=== PATIENT | female | born 1985 | race Caucasian/White ===

== ENCOUNTER 2023-04-26 06:09 | Emergency (ER) | payer BC, SELFPAY ==
[2023-04-26 06:14] VITALS: BP 143/85; PULSE 99; RESP 18; TEMP 36.7; O2SAT 99; BMI 32.8
[2023-04-26 06:23] LABS: Appearance Urine Clear (Clear); Bilirubin Urine Negative (Negative); Blood Urine 2+ (Negative); Color Urine Yellow (Yellow); Glucose Urine Negative (Negative); Ketones Urine Negative (Negative); Leukocyte Esterase Urine Trace (Negative); Nitrite Urine Negative (Negative); Protein Urine Negative (Negative); Specific Gravity Urine 1.025 (1.000-1.030); Urobilinogen Urine 0.2 (0.2-1.0)
--- NOTE | 2023-04-26 06:27 | ED.GENADULT ---
HPI - General Adult General Chief complaint: Abdominal Pain Stated complaint: poss kidney stones Time Seen by Provider: 04/26/23 06:13 History of Present Illness HPI narrative: CC: Right Upper Abdominal Pain pt. with pain since last night. did have 5mm kidney stone last month. she thinks it still might be there . denies n/v, diarrhea, fevers, urinary symptoms. 38-year-old woman presenting to the emergency department with complaint of sharp right flank pain since this last night. Fairly abrupt onset. She has not had any fevers. No vomiting. No hematuria. known history of renal stones. Later able to locate CT imaging from February 16 showing bilateral stone burden and specifically to visit here today with right-sided pain, there was a lower pole stone of the right kidney measuring 5.1 and a 6 mm stone in the same area. There was no ureteral stone at that time; it was presumed to have passed. Had a follow-up ultrasound imaging for right upper quadrant pain showing a 6 mm stone in the right proximal ureter at that time. Took a tab of remaining hydrocodone for pain. Related Data Home Medications Medication Instructions Recorded Confirmed albuterol sulfate 90 mcg/actuation 2 puff inhalation Q4H PRN wheezing 04/26/23 04/26/23 aerosol inhaler (Ventolin HFA) Previous Rx's Medication Instructions Recorded tamsulosin 0.4 mg capsule (Flomax) 0.4 mg PO DAILY #15 caps 04/26/23 Allergies Allergy/AdvReac Type Severity Reaction Status Date / Time latex Allergy Mild Hives Verified 04/26/23 06:35 Review of Systems Status of ROS: Reports: 6 or more systems reviewed and unremarkable except as noted in History and below [facility] Medical History Abdominal pain, epigastric ?R10.13 - Epigastric pain (ICD-10) Dysthymic disorder ?F34.1 - Dysthymic disorder (ICD-10) Migraine ?G43.909 - Migraine, unspecified, not intractable, without status migrainosus (ICD-10) Renal stone ?N20.0 - Calculus of kidney (ICD-10) Biliary dyskinesia ?K82.8 - Other specified diseases of gallbladder (ICD-10) Asthma ?J45.909 - Unspecified asthma, uncomplicated (ICD-10) Surgical History History of esophagogastroduodenoscopy (EGD) ?Z98.890 - Other specified postprocedural states (ICD-10) History of dilation and curettage ?Z98.890 - Other specified postprocedural states (ICD-10) Social History Smoking Status: Never smoker Second hand tobacco smoke exposure: No How often do you have a drink containing alcohol: never How often do you have six or more drinks on one occasion: Never AUDIT-C Alcohol total score: 0 Non-prescribed substance use: denies use Exam Narrative: Exam Narrative: Pleasant. Seems restless. Little distracted. Mildly diaphoretic face. Skin otherwise warm and dry. Well-perfused peripherally. Some pain to palpation in the right mid abdomen and right flank to percussion. She is breathing easily lungs appear to be clear. Heart in elevated rate and regular rhythm. Const: Vital Signs, click to edit/add: Vital Signs - 24 hr 04/26/23 06:14 04/26/23 06:48 04/26/23 06:52 Temperature 98.1 F 98.1 F Pulse Rate [Right Pulse Oximeter] 99 Respiratory Rate 18 Blood Pressure [Ri ght Upper Arm] 143/85 H Pulse Oximetry 99 98 Oxygen Delivery Me thod Room Air Documenting provider has reviewed patient's vital signs: yes Course Vital Signs Vital signs: Initial Vital Signs Temperature 98.1 F 04/26/23 06:14 Temperature Source Temporal Artery Scan 04/26/23 06:14 Pulse Rate 99 04/26/23 06:14 Respiratory Rate 18 04/26/23 06:14 Blood Pressure 143/85 H 04/26/23 06:14 Blood Pressure Mean 104 04/26/23 06:14 Blood Pressure Position Sitting 04/26/23 06:14 Pulse Oximetry 99 04/26/23 06:14 Oxygen Delivery Method Room Air 04/26/23 06:14 Vital Signs Temperature 98.1 F 04/26/23 06:14 Pulse Rate 99 04/26/23 06:14 Respiratory Rate 18 04/26/23 06:14 Blood Pressure 143/85 H 04/26/23 06:14 Pulse Oximetry 99 04/26/23 06:14 Oxygen Delivery Method Room Air 04/26/23 06:14 Temperature 98.1 F 04/26/23 06:48 Pulse Rate 99 04/26/23 06:14 Respiratory Rate 18 04/26/23 06:14 Blood Pressure 143/85 H 04/26/23 06:14 Pulse Oximetry 98 04/26/23 06:52 Oxygen Delivery Method Room Air 04/26/23 06:14 Medical Decision Making MDM Narrative Medical decision making narrative: Presentation and history would suggest that there is another stone, ureteral stone on the right side. Comparing images one would presume that it would be an approximately 5 mm stone that was remaining. Incidentally there were no stones in the gallbladder from 02/25/23 ultrasound Controlling pain with morphine ketorolac and giving IV fluids. Check basic labs. Urinalysis has returned showing primarily blood but without evidence of infection. Control of pain was accomplished here. We did discuss imaging. There may be some value to CT imaging but perhaps a KUB would be helpful for comparison. Has had extensive imaging and recent imaging at that. KUB reviewed by me seems to show small calculus in the right mid abdomen. Complicated by fecal material here and abdominal gas. Impression: Limited evaluation of the right. Questionable 2.5 millimeter calculus on the right overlying the transverse process of L3. Multiple calcifications in the left kidney. No definite calcifications within the course of the left ureter Overall improved and feels that she can return home. Labs overall reassuring other than the blood in the urine. See patient discharge plan Medical Records Medical records reviewed: Yes I reviewed the patient's medical records Lab Data Lab results reviewed: Yes I reviewed the patient's lab results Labs: Lab Results 04/26/23 04/26/23 Range/Units 06:10 06:45 WBC 7.84 (4.50-11.00) K/uL RBC 5.13 (4.00-5.20) m/uL Hgb 14.3 (12.0-16.0) gm/dL Hct 44.0 (33.0-51.0) % MCV 86 (80-100) fL MCH 28 (26-34) pg MCHC 33 (32-36) gm/dL RDW Coeff of Fidel 13.0 (11.5-15.5) % Plt Count 281 (140-440) K/uL Neut % (Auto) 73.1 H (42.0-72.0) % Lymph % (Auto) 14.0 L (20-44) % Casey % (Auto) 10.2 (0.0-11.0) % Eos % (Auto) 2.0 (0.0-7.0) % Baso % (Auto) 0.3 (0.0-3.0) % Neut # (Auto) 5.70 (1.7-7.0) K/uL Lymph # (Auto) 1.10 (0.90-2.90) K/uL Casey # (Auto) 0.80 (0.00-0.90) K/UL Eos # (Auto) 0.16 (0.00-0.50) K/uL Baso # (Auto) 0.02 (0.00-0.30) K/uL Abs Immat Gran (auto) 0.03 (0.00-0.30) K/uL Imm/Tot Granulo (auto) 0.4 % Sodium 137 (135-149) mmol/L Potassium 4.3 (3.6-5.1) mmol/L Chloride 107 (96-114) mmol/L Carbon Dioxide 23 (20-32) mmol/L Anion Gap 7 (7-15) mEq/L BUN 19 (5-24) mg/dL Creatinine 1.0 (0.5-1.5) mg/dL Estimated Creat Clear 63.10 Estimated GFR 74 ml/min Glucose 107 (60-115) mg/dL Calcium 9.5 (8.4-10.6) mg/dL Urine Color Yellow (Yellow) Urine Appearance Clear (Clear) Urine pH 6.0 (5.0-8.5) Ur Specific [place] 1.025 (1.000-1.030) Urine Protein Negative (Negative) Urine Glucose (UA) Negative (Negative) Urine Ketones Negative (Negative) Urine Blood 2+ A (Negative) Urine Nitrite Negative (Negative) Urine Bilirubin Negative (Negative) Urine Urobilinogen 0.2 (0.2-1.0) Ur Leukocyte Esterase Trace A (Negative) Urine RBC 5-10 A (0-2) Urine WBC 2-5 (0-5) Ur Squamous Epith Cells Few (None-Few) Urine Bacteria Few A (None) Discharge Plan Discharge Clinical Impression: Ureteral colic, Right sided abdominal pain, Right ureteral calculus Patient Disposition: Home w/ Parent or Adult Condition: Improved Additional Instructions: Stay well-hydrated. Would consider straining your urine over this next week. If pain is uncontrolled, you developed fever or repeated vomiting would be seen again/return to the emergency department. Also be seen for pain lasting more than 4 days. Percocet from [facility]. Flomax sent to your pharmacy. Take the Flomax daily until you are sure of stone passage. Can take up to 800 mg of ibuprofen per dose which may be combined with any of the above medications. Prescriptions: New tamsulosin [Flomax] 0.4 mg capsule 0.4 mg PO DAILY Qty: 15 0RF No Action albuterol sulfate [Ventolin HFA] 90 mcg/actuation HFA aerosol inhaler 2 puff INHALATION Q4H PRN (Reason: wheezing) Follow Up/Referrals: Jerilyn Gutiérrez MD [Primary Care Provider] - Stand Alone Forms: [employer] Info Instructions
[2023-04-26 06:32] LABS: Bacteria Urine Few; Squamous Epithelial Cell Urine Few (None-Few)
[2023-04-26] MEDS: 0.9 % SODIUM CHLORIDE 1000 ml 1,000 ML 2000 ML IV (06:45)
[2023-04-26] MEDS: MORPHINE 4 MG/ML INJ IVP (06:46)
[2023-04-26 06:48] VITALS: TEMP 36.7
[2023-04-26] MEDS: KETOROLAC 30 MG/ML inj IVP (06:48)
[2023-04-26 06:52] VITALS: O2SAT 98
[2023-04-26 06:58] LABS: Basophils Absolute Auto 0.02 K/uL (0.00-0.30); Basophils Percent Auto 0.3 % (0.0-3.0); Eosinophils Absolute Auto 0.16 K/uL (0.00-0.50); Hemoglobin* 14.3 gm/dL (12.0-16.0); Immature Granulocytes Abs Auto 0.03 K/uL (0.00-0.30); Immature Granulocytes Pct Auto 0.4 %; Mean Corpuscular HGB Conc 33 gm/dL (32-36); Mean Corpuscular Hemoglobin 28 pg (26-34); Mean Corpuscular Volume 86 fL (80-100); Monocytes Percent Auto 10.2 % (0.0-11.0); Neutrophils Percent Auto 73.1 % (42.0-72.0); Platelet Count* 281 K/uL (140-440); Red Blood Count 5.13 m/uL (4.00-5.20); White Blood Count* 7.84 K/uL (4.50-11.00)
[2023-04-26 06:59] LABS: Slide Review Reflex No
--- NOTE | 2023-04-26 07:04 | CRLHL7_ITS ---
For Patients: As a result of the Century Cures Act, medical imaging exams and procedure reports are released immediately into your electronic medical record. You may view this report before your referring provider. If you have questions, please contact your health care provider. Indication: Urolithiasis Technique: KUB examination abdomen Comparison: No prior plain film Findings: Considerable fecal material overlies the right flank rendering the study limited. There are multiple calcifications overlying the upper, mid and lower pole of the left kidney in the 1-3 millimeter range parent pelvic calcifications are noted which are likely phleboliths. No definite calcification within the course of the left ureter. There is a questionable calculus overlying the right 3rd transverse process measuring about 2.5 millimeters. Impression: Limited evaluation of the right. Questionable 2.5 millimeter calculus on the right overlying the transverse process of L3. Multiple calcifications in the left kidney. No definite calcifications within the course of the left ureter Dictated by Akbar Ibrahim MD @ 04/26/2023 7:38:55 AM (Electronically Signed)
[2023-04-26 07:08] LABS: Chloride* 107 mmol/L (96-114); Potassium* 4.3 mmol/L (3.6-5.1); Sodium* 137 mmol/L (135-149)
[2023-04-26 07:10] LABS: Estimated Glomerular Filt Rate 74 ml/min
[2023-04-26 07:11] LABS: Anion Gap 7 mEq/L (7-15); Blood Urea Nitrogen* 19 mg/dL (5-24); Calcium* 9.5 mg/dL (8.4-10.6); Carbon Dioxide* 23 mmol/L (20-32); Glucose* 107 mg/dL (60-115)
[2023-04-26] MEDS: TAMSULOSIN HCL 0.4 MG CAPSULE PO (07:52)
== END 2023-04-26 07:54 | disposition home or self-care (01) ==
PROVIDERS: Emergency Provider Family Medicine; PCP Family Medicine
DX: N20.1 Calculus of ureter (principal); R10.9 Unspecified abdominal pain
CPT/HCPCS: 36415; 74018; 80048; 81003; 81015; 85025; 87086; 94761; 96361; 96374; 96375; 99284; A9270; J1885; J2270; J7030